=== PATIENT | male | born 1960 | race Caucasian/White ===

== ENCOUNTER → 2017-08-10 | Outpatient (CLI) | payer OTHER ==
--- NOTE | 2017-08-10 20:12 | PN ---
PROGRESS NOTE 56-year-old male patient diagnosed having severe JARRETT with an AHI of 72 and the patient is being treated with a CPAP pressure of 16 cm of water. The patient is coming in for an annual check. He is still benefitting from the treatment. He is wearing his CPAP overnight without any interruption. His CPAP use is around 6.68 hours per night. His weight has been stable at 394. He does not snore while on CPAP therapy. He is waking up alert and refreshed during the day. He is still being treated for chronic atrial fibrillation and he is currently on sotalol and Eliquis. Sotalol has regulated his cardiac rhythm and he is currently in sinus. He wakes up alert and awake during the day. He does not falling asleep during the daily activities. Does not fall asleep while driving. No history of any motor vehicle accidents. No snoring while on CPAP therapy and is using AirFit P10 nasal pillow medium size. His current vitals: Weight is 394, BP is 136/77, pulse is 77, respirations 16, temperature 98.2. Height is 6'6". BMI is 45.4. Saturation 96%. GENERAL APPEARANCE: Calm, comfortable. Not in acute distress. HEAD: Atraumatic, normocephalic. NECK: Supple. There is no JVD, no goiter or neck masses. Mallampati class IV. LUNGS: Clear to auscultation. HEART: Heart sounds regular rate and rhythm. Normal S1, S2. No S3, S4. No murmurs. ABDOMEN: Soft, nontender. No organomegaly. EXTREMITIES: No edema, no cyanosis or clubbing. NEURO: Alert and oriented x3. There is no focal neurological deficits. PSYCH: Negative for any anxiety or depression. SKIN: Negative for any ulcers, wounds or cellulitis. IMPRESSION: 1. Symptomatic obstructive sleep apnea, AHI of 72. Continues to receive successful CPAP therapy at pressure of 16 cm of water. 2. Obesity with a BMI of 45, weight unchanged. 3. Hypersomnia, recovered. PLAN: 1. Continue CPAP therapy at same level of pressure, no need for any adjustment. 2. Continue monitoring the cardiac rhythm and the patient's rhythm is sinus for now. 3. Encourage weight loss. 4. Treatment is successful. Refill will be given. See him back in a year's time or earlier if needed. MMODL / IJN: [id number] /
== END | disposition home or self-care (01) ==
LOC: SLEEP 16:01
PROVIDERS: ATTEND Internal Medicine Critical Care Medicine
DX: G47.33 Obstructive sleep apnea (adult) (pediatric) (principal); E66.9 Obesity, unspecified; Z68.42 Body mass index [BMI] 45.0-49.9, adult

== ENCOUNTER → 2018-08-09 | Outpatient (CLI) | payer OTHER ==
--- NOTE | 2018-08-09 18:38 | PN ---
PROGRESS NOTE [facility] PROGRESS NOTE: Enmanuel is 57 with severe JARRETT, AHI of 72, currently on CPAP pressure of 16. He has been very successfully treated over the past few years. He is using the AirFit P10 medium- sized nasal pillows. His weight is down by around 10 pounds. He currently weighs 384. He has been very compliant with CPAP therapy. His CPAP use for more than 4 hours is 100%, averaging around 6.6 hours of CPAP use per night. He is waking up refreshed and alert during the day. Calhoun score is 4. He is still having paroxysmal atrial fibrillation. No palpitations at nighttime. No chest pain at nighttime. He is able to sleep without being interrupted. No major swelling of the lower extremities. No headaches. No body aches or pains. No other complaints otherwise. BP is 143/75, pulse 71, respirations 16, temperature 98.1, saturation 95% on room air. Calhoun score is 4. BMI is 44.6. Weight is 384. GENERAL APPEARANCE: Calm, comfortable. Head is atraumatic, normocephalic. Neck is supple. Mallampati class IV. There is no goiter or neck mass. LUNGS: Clear to auscultation. Heart sounds are regular rate and rhythm. Normal S1, S2. No S3, S4. No murmurs. Abdomen is soft, nontender. No organomegaly. EXTREMITIES: No edema. No cyanosis or clubbing. IMPRESSION: 1. Severe obstructive sleep apnea, apnea/hypopnea index of 72, currently on CPAP with a pressure of 16 cm of water. 2. Obesity with a body mass index of 44.6; lost around 9 pounds since his last evaluation. 3. Hypersomnia, recovered. PLAN: 1. Encourage further weight loss. 2. Continue CPAP at the same level of pressure. 3. Renew his AirFit P10 medium-sized nose pillows. 4. Treatment has been successful. No changes for today. See me back in a year's time, earlier if needed. MMODL / IJN: [id number] /
== END | disposition home or self-care (01) ==
LOC: SLEEP 15:08
PROVIDERS: ATTEND Internal Medicine Critical Care Medicine
DX: G47.33 Obstructive sleep apnea (adult) (pediatric) (principal); E66.9 Obesity, unspecified; I48.0 Paroxysmal atrial fibrillation; Z68.41 Body mass index [BMI] 40.0-44.9, adult; Z99.89 Dependence on other enabling machines and devices